=== PATIENT | male | born 2000 | race Caucasian/White ===

== ENCOUNTER 2022-08-29 23:30 | Observation (INO) ==
[2022-08-29 23:49] LABS: Hematocrit 38 % (42-52); Hemoglobin 12.8 g/dL (14.0-18.0); Mean Corpuscular HGB Conc 33 g/dL (31-36); Mean Corpuscular Hemoglobin 31 pg (27-31); Mean Corpuscular Volume 93 fL (80-94); Mean Platelet Volume 7.4 fL (7.4-10.4); Platelet Count 369 10^3/uL (150-450); Red Blood Count 4.11 10^6 /uL (4.18-5.48); Red Cell Distribution Width 13 % (10-15); White Blood Count 17.3 10^3/uL (3.5-10.8)
[2022-08-30 00:22] LABS: INR 1.57 (0.89-1.11)
[2022-08-30 00:29] LABS: Albumin 3.5 g/dL (3.2-5.2); Albumin/Globulin Ratio 0.9 (1-3); Calcium 8.2 mg/dL (8.6-10.3); Globulin 3.7 g/dL (2-4); Potassium 3.9 mmol/L (3.5-5.0); Total Bilirubin 0.4 mg/dL (0.2-1.0); Total Protein 7.2 g/dL (6.4-8.9); eGFR CKD-EPI 111.8 (>60)
[2022-08-30 00:57] LABS: ABS Basophils 0.1 10^3/ul (0-0.2); ABS Lymphocytes 1.1 10^3/ul (1.0-4.8); ABS Monocytes 0.4 10^3/ul (0-0.8); ABS Neutrophils 15.7 10^3/ul (1.5-7.7); Eosinophil % 0.1 %; Lymphocyte % 6.4 %
[2022-08-30 01:19] LABS: High Sensitivity Troponin 1 Hr 5 pg/mL (<20)
[2022-08-30] MEDS ORDERED: Iohexol 350 (CONTRAST) 500 ML MDV IV ONE (06:14)
[2022-08-30] MEDS ORDERED: Azithromycin 500 mg/250 ml NS 500 MG/250 ML BAG IVPB ONE (07:10)
[2022-08-30] MEDS ORDERED: cefTRIAXone 1 gm/50 mL D5W 1 GM/50 ML BAG IV ONE (07:10)
[2022-08-30] MEDS ORDERED: Lactated Ringers 1000 ml BAG 1,000 ML IV ONE (07:11)
[2022-08-30] MEDS ORDERED: Enoxaparin 80 MG/0.8 ML SYR SUBCUT ONE ×2 (08:25→20:00)
[2022-08-30] MEDS ORDERED: Ondansetron 4 mg VIAL 2 MG/ML 2 ml VIAL IV PRN (09:19)
[2022-08-30] MEDS ORDERED: Piperacillin/Tazobac ADVAN 3.375 GM in NS 0.9% 100 ml BAG 100 ML IV ONE (09:19)
[2022-08-30 09:59] LABS: Hematocrit 37 % (42-52); Hemoglobin 12.2 g/dL (14.0-18.0); Mean Corpuscular HGB Conc 33 g/dL (31-36); Mean Corpuscular Hemoglobin 30 pg (27-31); Mean Corpuscular Volume 93 fL (80-94); Mean Platelet Volume 7.7 fL (7.4-10.4); Platelet Count 385 10^3/uL (150-450); Red Blood Count 4.03 10^6 /uL (4.18-5.48); Red Cell Distribution Width 13 % (10-15); White Blood Count 32.7 10^3/uL (3.5-10.8)
[2022-08-30] MEDS ORDERED: Zosyn per Pharmacy NOTE FOLLOW UP SCH (10:00)
[2022-08-30] MEDS ORDERED: DOXYcycline 100 MG in NS 0.9% 250 ml 250 ML IVPB SCH (11:00)
[2022-08-30 12:01] LABS: Urine Benzodiazepine Screen None Detected (None Detect); Urine Cannabinoids Screen Presumptive Positive (None Detect); Urine Opiates Screen None Detected (None Detect)
[2022-08-30 12:12] LABS: ABS Monocytes 1.3 10^3/ul (0-0.8); ABS Neutrophils 30.4 10^3/ul (1.5-7.7); Lymphocyte % 2.9 %
[2022-08-30] MEDS ORDERED: ZOSYN 3.375 GM Q8H per EXTENDED INFUSION IV SCH (14:30)
[2022-08-30] MEDS: Saline NASAL SPRAY 0.65% BTL BOTH NARES PRN (20:28)
[2022-08-30] MEDS: DOXYcycline 100 MG in NS 0.9% 250 ml 250 ML IVPB SCH (22:50)
[2022-08-30] MEDS ORDERED: NS 0.9% 500 ml BAG 500 ML IV SCH (23:00)
[2022-08-31] MEDS: TAZOBACTAM IV SCH ×4 (00:50→18:39)
[2022-08-31] MEDS: PIPERACILLIN IV SCH ×4 (00:50→18:39)
[2022-08-31 06:16] LABS: Hematocrit 36 % (42-52); Mean Corpuscular HGB Conc 33 g/dL (31-36); Mean Corpuscular Hemoglobin 30 pg (27-31); Mean Corpuscular Volume 92 fL (80-94); Mean Platelet Volume 7.8 fL (7.4-10.4); Platelet Count 360 10^3/uL (150-450); Red Blood Count 3.94 10^6 /uL (4.18-5.48); Red Cell Distribution Width 13 % (10-15); White Blood Count 34.4 10^3/uL (3.5-10.8)
[2022-08-31 06:35] LABS: ABS Basophils 0.1 10^3/ul (0-0.2); ABS Eosinophils 0.2 10^3/ul (0-0.6); ABS Monocytes 2.1 10^3/ul (0-0.8); ABS Neutrophils 30.7 10^3/ul (1.5-7.7); Eosinophil % 0.6 %
[2022-08-31] MEDS: Saline NASAL SPRAY 0.65% BTL BOTH NARES PRN ×2 (06:49→18:36)
[2022-08-31 06:58] LABS: Magnesium 1.6 mg/dL (1.9-2.7); Potassium 4.1 mmol/L (3.5-5.0); eGFR CKD-EPI 129.9 (>60)
[2022-08-31] MEDS ORDERED: Magnesium Sulfate 2 gm BAG 2 GM/50 ML BAG IVPB ONE (08:20)
[2022-08-31] MEDS: DOXYcycline 100 MG in NS 0.9% 250 ml 250 ML IVPB SCH (12:15)
[2022-08-31] MEDS ORDERED: Lidocaine 1% MPF 5 ML VIAL INJ ONE (15:17)
[2022-08-31] MEDS: Enoxaparin 80 MG/0.8 ML SYR SUBCUT SCH (18:41)
[2022-08-31 20:11] LABS: Body Fluid Appearance Cloudy; Body Fluid Color Yellow; Body Fluid Source Pleural Fluid
[2022-08-31 21:49] LABS: Body Fluid WBC 3050 /mcL
[2022-08-31 21:52] LABS: Body Fluid Band 2 %; Body Fluid Mono 2 %; Body Fluid Total Cells Counted 200
[2022-09-01] MEDS: DOXYcycline 100 MG in NS 0.9% 250 ml 250 ML IVPB SCH (00:19)
[2022-09-01] MEDS: TAZOBACTAM IV SCH ×2 (01:42→06:36)
[2022-09-01] MEDS: PIPERACILLIN IV SCH ×2 (01:42→06:36)
[2022-09-01] MEDS: Enoxaparin 80 MG/0.8 ML SYR SUBCUT SCH (06:36)
[2022-09-01] MEDS: Saline NASAL SPRAY 0.65% BTL BOTH NARES PRN (06:48)
[2022-09-01 07:06] LABS: Hematocrit 37 % (42-52); Hemoglobin 12.1 g/dL (14.0-18.0); Mean Corpuscular HGB Conc 33 g/dL (31-36); Mean Corpuscular Hemoglobin 31 pg (27-31); Mean Corpuscular Volume 93 fL (80-94); Mean Platelet Volume 7.9 fL (7.4-10.4); Platelet Count 402 10^3/uL (150-450); Red Blood Count 3.93 10^6 /uL (4.18-5.48); Red Cell Distribution Width 13 % (10-15); White Blood Count 28.5 10^3/uL (3.5-10.8)
[2022-09-01 07:14] LABS: ABS Lymphocytes 1.3 10^3/ul (1.0-4.8); ABS Monocytes 1.6 10^3/ul (0-0.8); ABS Neutrophils 25.6 10^3/ul (1.5-7.7); Lymphocyte % 4.5 %
[2022-09-01 07:37] LABS: Calcium 7.9 mg/dL (8.6-10.3); Magnesium 1.8 mg/dL (1.9-2.7); Potassium 4.2 mmol/L (3.5-5.0); eGFR CKD-EPI 129.4 (>60)
[2022-09-01] MEDS ORDERED: Vancomycin 1,000 MG in NS 0.9% 250 ml 250 ML IVPB ONE (08:55)
[2022-09-01] MEDS ORDERED: Vancomycin per Pharmacy 1 EA NOTE FOLLOW UP SCH (09:00)
[2022-09-01 10:58] VITALS: BP 111/56
[2022-09-02 11:01] LABS: Fluid Type, Protein, Total PLEURAL FLUID (LEFT); Total Protein, BF 5.1 g/dL
[2022-09-02 13:13] LABS: Lactate Dehydrogenase, BF 2064 U/L
== END 2022-09-01 12:35 | disposition left against medical advice (07) ==
LOC: ED 23:30 → EDHOLD 23:30 → SUATTDRO 08-30 09:20 → SSU 08-30 13:10
PROVIDERS: ADMIT Student in an Organized Health Care Education/Training Program; ATTEND Internal Medicine